=== PATIENT | male | born 1975 | race Caucasian/White ===

== ENCOUNTER 2017-04-23 14:28 | Emergency (ER) | payer SELFPAY ==
[~2017-04-23] VITALS: Ht 170.2 cm; Wt 76.6 kg
[2017-04-23 14:32] VITALS: BP 163/104; PULSE 52; RESP 16; TEMP 98.6; O2SAT 100
[2017-04-23] MEDS ORDERED: SODIUM CHLOR 0.9% 1000 ML INJ 1,000 ML IV ONE (14:51)
[2017-04-23] MEDS ORDERED: ACETAMINOPHEN 325 MG TAB PO ONE (15:00)
[2017-04-23] MEDS ORDERED: diphenhydrAMINE HCL 50 MG/ML VIAL IVP ONE (15:00)
[2017-04-23] MEDS ORDERED: PROCHLORPERAZINE INJ 10 MG/2 ML VIAL IVP ONE (15:00)
[2017-04-23] MEDS ORDERED: SODIUM CHLORIDE 0.9% FLUSH 10 ML FLUSH IVF PRN (15:00)
[2017-04-23 15:13] LABS: AUTOMATED NEUTROPHIL # 4.5 TH/MM3 (1.8-7.7); BASOPHIL % 0.5 % (0.0-2.0); EOSINOPHIL % 0.4 % (0.0-4.0); HEMATOCRIT 43.2 % (39.0-51.0); HEMO FLAGS DIFF FINAL; LYMPH % 23.4 % (9.0-44.0); LYMPHOCYTE # 1.5 TH/MM3 (1.0-4.8); MEAN CELL VOLUME 87.3 FL (80.0-100.0); MEAN CORPUSCULAR HEMOGLOBIN 28.7 PG (27.0-34.0); MEAN CORPUSCULAR HGB CONC 32.8 % (32.0-36.0); MONO % 5.2 % (0.0-8.0); NEUT % 70.5 % (16.0-70.0); PLATELET COUNT 318 TH/MM3 (150-450); RED BLOOD COUNT 4.95 MIL/MM3 (4.50-5.90); RED CELL DISTRIBUTION WIDTH 12.9 % (11.6-17.2); WHITE BLOOD COUNT 6.3 TH/MM3 (4.0-11.0)
[2017-04-23 15:19] VITALS: BP 129/86; PULSE 78; RESP 16; O2SAT 99
[2017-04-23 15:20] VITALS: RESP 16; O2SAT 98
[2017-04-23 15:22] LABS: POTASSIUM 3.9 MEQ/L (3.5-5.1)
[2017-04-23 15:27] LABS: BICARBONATE 29.8 MEQ/L (21.0-32.0)
[2017-04-23] MEDS ORDERED: PROM25TA10 PO (15:58)
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
[2017-04-23 16:23] VITALS: BP 111/70; PULSE 58; RESP 16; O2SAT 99
== END 2017-04-23 16:30 | disposition home or self-care (01) ==
LOC: PHED 14:28
DX: R51 Headache (principal)
CPT/HCPCS: 80048; 85025; 96361; 96374; 96375; 99284; J0780; J1200; J7030